=== PATIENT | male | born 1965 | race African-American/Black ===

== ENCOUNTER 2021-11-01 20:04 | Emergency (ER) | payer OTHER ==
[2021-11-01 21:08] VITALS: BP 130/83; PULSE 77; TEMP 98.6; BMI 38.2
[2021-11-03 08:07] LABS: SARS-CoV-2 NAA Not Detected (Not Detected)
== END 2021-11-01 22:23 | disposition home or self-care (01) ==
LOC: JER 20:04
DX: Z20.822 Contact with and (suspected) exposure to COVID-19 (principal)
CPT/HCPCS: 99283-25; C9803; U0003; U0005